=== PATIENT | female | born 1990 | race Two or more races ===

== ENCOUNTER 2016-09-02 20:38 | Day surgery (SDC) | payer OTHER ==
--- NOTE | 2016-09-02 20:52 | ER Document Report ---
ED Medical Screen (RME) - General Chief Complaint: Abdominal Pain Stated Complaint: ABDOMINAL PAIN Time seen by provider: 20:50 Mode of Arrival: Ambulatory Information source: Patient Notes: 26 yo female presents to ed for abdominal pain with spotting, Just had a miscarriage in April, states she is TRAVEL OUTSIDE OF THE [place] IN LAST 30 DAYS: No - HPI Onset: Other - 2days Onset/Duration: Gradual Quality of pain: Cramping Pain Level: 3 Associated Symptoms: Abdominal pain, Vaginal bleeding, Other - Exacerbated by: Denies Relieved by: Denies Similar symptoms previously: Yes Recently seen / treated by doctor: No - Related Data Smoking: Non-smoker Frequency of alcohol use: Rare Drug Abuse: None Allergies/Adverse Reactions: acetaminophen [From NyQuil] Allergy (Verified 09/02/16 20:49) dextromethorphan [From NyQuil] Allergy (Verified 09/02/16 20:49) doxylamine [From NyQuil] Allergy (Verified 09/02/16 20:49) guaifenesin [From Robitussin] Allergy (Verified 09/02/16 20:49) pseudoephedrine [From NyQuil] Allergy (Verified 09/02/16 20:49) Past Medical History Past Surgical History: Reports: Hx Cholecystectomy - Immunizations Hx Diphtheria, Pertussis, Tetanus Vaccination: Yes
--- NOTE | 2016-09-02 21:24 | ER Document Report ---
ED General - General Chief Complaint: Abdominal Pain Stated Complaint: ABDOMINAL PAIN Mode of Arrival: Ambulatory Information source: Patient Notes: 26-year-old female 6 para 1, 5 abortions presents with complaints of vaginal bleeding that started earlier today. Patient denies any fevers or chills nausea vomiting or diarrhea TRAVEL OUTSIDE OF THE [place] IN LAST 30 DAYS: No - HPI Onset: Just prior to arrival Onset/Duration: Sudden Quality of pain: Cramping Severity: Mild Pain Level: 1 Associated symptoms: Other Exacerbated by: Denies Relieved by: Denies Similar symptoms previously: Yes Recently seen / treated by doctor: Yes - Related Data Allergies/Adverse Reactions: acetaminophen [From NyQuil] Allergy (Verified 09/02/16 20:49) dextromethorphan [From NyQuil] Allergy (Verified 09/02/16 20:49) doxylamine [From NyQuil] Allergy (Verified 09/02/16 20:49) guaifenesin [From Robitussin] Allergy (Verified 09/02/16 20:49) pseudoephedrine [From NyQuil] Allergy (Verified 09/02/16 20:49) Past Medical History - General Information source: Patient - Social History Smoking Status: Never Smoker Cigarette use (# per day): No Chew tobacco use (# tins/day): No Smoking Education Provided: No Frequency of alcohol use: Rare Drug Abuse: None Family History: Reviewed & Not Pertinent Patient has suicidal ideation: No Patient has homicidal ideation: No Past Surgical History: Reports: Hx Cholecystectomy - Immunizations Hx Diphtheria, Pertussis, Tetanus Vaccination: Yes Review of Systems - Review of Systems Notes: REVIEW OF SYSTEMS: CONSTITUTIONAL : Denies fever, chills, or sweats. Denies recent illness. EENT: Denies eye, ear, throat, or mouth pain or symptoms. Denies nasal or sinus congestion or discharge. Denies throat, tongue, or mouth swelling or difficulty swallowing. CARDIOVASCULAR: Denies chest pain. Denies palpitations or racing or irregular heart beat. Denies ankle edema. RESPIRATORY: Denies cough, cold, or chest congestion. Denies shortness of breath, difficulty breathing, or wheezing. GASTROINTESTINAL: Denies abdominal pain or distention. Denies nausea, vomiting , or diarrhea. Denies blood in vomitus, stools, or per rectum. Denies black, tarry stools. Denies constipation. GENITOURINARY: Denies difficulty urinating, painful urination, burning, frequency, blood in urine, or discharge. FEMALE GENITOURINARY: Admits to vaginal bleeding cramping MUSCULOSKELETAL: Denies back or neck pain or stiffness. Denies joint pain or swelling. SKIN: Denies rash, lesions or sores. HEMATOLOGIC : Denies easy bruising or bleeding. LYMPHATIC: Denies swollen, enlarged glands. NEUROLOGICAL: Denies confusion or altered mental status. Denies passing out or loss of consciousness. Denies dizziness or lightheadedness. Denies headache. Denies weakness or paralysis or loss of use of either side. Denies problems with gait or speech. Denies sensory loss, numbness, or tingling. Denies seizures. PSYCHIATRIC: Denies anxiety or stress. Denies depression, suicidal ideation, or homicidal ideation. ALL OTHER SYSTEMS REVIEWED AND NEGATIVE. Dictation was performed using [employer] voice recognition software PHYSICAL EXAMINATION: GENERAL: Well-appearing, well-nourished and in no acute distress. HEAD: Atraumatic, normocephalic. EYES: Pupils equal round and reactive to light, extraocular movements intact, conjunctiva are normal. ENT: Nares patent, oropharynx clear without exudates. Moist mucous membranes. NECK: Normal range of motion, supple without lymphadenopathy LUNGS: Breath sounds clear to auscultation bilaterally and equal. No wheezes rales or rhonchi. HEART: Regular rate and rhythm without murmurs ABDOMEN: Soft, nontender, nondistended abdomen. No guarding, no rebound. No masses appreciated. Female : deferred by patient Musculoskeletal: Normal range of motion, no pitting or edema. No cyanosis. NEUROLOGICAL: Cranial nerves grossly intact. Normal speech, normal gait. Normal sensory, motor exams PSYCH: Normal mood, normal affect. SKIN: Warm, Dry, normal turgor, no rashes or lesions noted. Physical Exam - Vital signs Vitals: Temp Pulse Resp BP Pulse Ox 98.8 F 80 14 114/74 99 09/02/16 20:51 09/02/16 20:51 09/02/16 20:51 09/02/16 20:51 09/02/16 20:51 Course - Re-evaluation Re-evalutation: 09/02/16 22:42 Lab work noted hCG is 3300 09/02/16 23:13 Patient notes spotting that in fact started yesterday, denies any significant pain, vital signs are stable. Ultrasound is concerning for an ectopic , I did contact Dr. Rand who is on-call she will evaluate the images. I have spoken with the patient regards to this and await her call back 09/02/16 23:25 Dr Rand agrees that it appears to be an ectopic . She will evaluate the patient and expects to give methotrexate. Pt is made aware as well - Vital Signs Vital signs: Temp Pulse Resp BP Pulse Ox 98.8 F 80 14 114/74 99 09/02/16 20:51 09/02/16 20:51 09/02/16 20:51 09/02/16 20:51 09/02/16 20:51 - Laboratory Result Diagrams: 09/02/16 21:30 09/02/16 21:30 Laboratory results interpreted by me: 09/02/16 09/02/16 21:30 22:05 BUN 3 L Beta HCG, Quant 3463.60 H Urine Ketones TRACE H Urine Blood LARGE H - Diagnostic Test Radiology reviewed: Image reviewed, Reports reviewed - cocnerning for ectopic Discharge - Discharge Clinical Impression: Vaginal bleeding, abnormal Ectopic Qualifiers: Location of ectopic : tubal Intrauterine status: without intrauterine Qualified Code(s): O00.10 - Tubal without intrauterine Condition: Stable Disposition: HOME, SELF-CARE Instructions: Ectopic (Stable) ([facility]) Additional Instructions: You must return immediately if there are any other concerns Prescriptions: Oxycodone HCl/Acetaminophen [Percocet 5-325 mg Tablet] 1 - 2 tab PO Q4H PRN #15 tablet PRN Reason: Referrals: SUSAN RAND MD [ACTIVE STAFF] - 09/05/16
[2016-09-02 21:41] LABS: ABSOLUTE BASOPHILS # (AUTO) 0.1 10^3/uL (0.0-0.2); ABSOLUTE EOSINOPHILS # (AUTO) 0.1 10^3/uL (0.0-0.6); ABSOLUTE LYMPHOCYTES (AUTO) 1.9 10^3/uL (0.5-4.7); ABSOLUTE MONOCYTES (AUTO) 0.6 10^3/uL (0.1-1.4); BASOPHILS % (AUTO) 0.8 % (0-2); EOSINOPHILS % (AUTO) 1.1 % (0-6); HEMATOCRIT 38.7 % (36.0-47.0); HEMOGLOBIN 12.9 g/dL (12.0-15.5); LYMPHOCYTES % (AUTO) 19.7 % (13-45); MEAN CORPUSCULAR HEMOGLOBIN 28.8 pg (27.0-33.4); MEAN CORPUSCULAR HGB CONC 33.4 g/dL (32.0-36.0); MEAN CORPUSCULAR VOLUME 86 fl (80-97); MONOCYTES % (AUTO) 6.6 % (3-13); RED BLOOD COUNT 4.48 10^6/uL (3.72-5.28); RED CELL DISTRIBUTION WIDTH 13.2 % (11.5-14.0); SEGMENTED NEUTROPHILS % (AUTO) 71.8 % (42-78); WHITE BLOOD COUNT 9.7 10^3/uL (4.0-10.5)
[2016-09-02 21:54] LABS: ALANINE AMINOTRANSFERASE 25 U/L (9-52); ALBUMIN 4.7 g/dL (3.5-5.0); ALKALINE PHOSPHATASE 55 U/L (38-126); ANION GAP 12 (5-19); ASPARTATE AMINO TRANSFERASE 24 U/L (14-36); BILIRUBIN,TOTAL 0.5 mg/dL (0.2-1.3); BLOOD UREA NITROGEN 3 mg/dL (7-20); CARBON DIOXIDE 28 mmol/L (22-30); CHLORIDE 103 mmol/L (98-107); CREATININE RESULT 0.66 mg/dL (0.52-1.25); GLUCOSE 94 mg/dL (75-110); POTASSIUM 3.9 mmol/L (3.6-5.0); SODIUM 143.3 mmol/L (137-145); TOTAL PROTEIN 7.6 g/dL (6.3-8.2)
[2016-09-02 22:21] LABS: APPEARANCE,URINE SLIGHTLY-CLOUDY; BILIRUBIN,URINE NEGATIVE (NEGATIVE); GLUCOSE, URINE NEGATIVE (NEGATIVE); KETONES,URINE TRACE mg/dL (NEGATIVE); LEUKOCYTE ESTERASE,URINE NEGATIVE (NEGATIVE); NITRITE,URINE NEGATIVE (NEGATIVE); PROTEIN,URINE NEGATIVE (NEGATIVE); URINE SPECIFIC GRAVITY 1.013; UROBILINOGEN,URINE NEGATIVE mg/dL (<2.0)
[2016-09-02] MEDS ORDERED: NORMAL SALINE 1000 ML 1,000 ML IV ONE (23:34)
[2016-09-02] MEDS ORDERED: OXYCODONE-ACETAMINOPHEN 5-325 MG TABLET PO ONE (23:36)
[2016-09-02] MEDS ORDERED: PROMETHAZINE HCL 25 MG TABLET PO ONE (23:36)
[2016-09-03] MEDS: RINGERS SOLUTION,LACTATED 1,000 ML IV PRN ×2 (01:58→10:22)
[2016-09-03] MEDS: KETOROLAC TROMETHAMINE INJ/PF 30 MG/1 ML SDV IV PRN ×2 (03:49→13:00)
[2016-09-03] MEDS ORDERED: MIDAZOLAM 2 MG/2 ML INJ ONE (10:14)
[2016-09-03] MEDS ORDERED: HYDROMORPHONE HCL INJ/PF 2 MG/ML AMPULE ONE (10:14)
[2016-09-03] MEDS ORDERED: FENTANYL CITRATE INJ/PF 100 MCG/2 ML AMPUL ONE (10:14)
[2016-09-03] MEDS ORDERED: PROPOFOL INJ 200 MG/20 ML VIAL IV ONE (10:15)
[2016-09-03] MEDS ORDERED: ONDANSETRON HCL INJ/PF 4 MG/2 ML SDV ONE (10:27)
[2016-09-03] MEDS ORDERED: SUCCINYLCHOLINE CHLORIDE INJ 200 MG/10 ML VIAL ONE (10:27)
[2016-09-03] MEDS ORDERED: LIDOCAINE 2% INJ-PF (20 MG/ML) 10 ML AMPUL ONE (10:27)
[2016-09-03] MEDS ORDERED: DEXAMETHASONE SOD PHOSPHATE INJ 4 MG/1 ML VIAL ONE (10:27)
[2016-09-03] MEDS ORDERED: KETOROLAC TROMETHAMINE 60 MG/2 ML SDV ONE (10:27)
[2016-09-03] MEDS ORDERED: CEFAZOLIN INJ 1 GM VIAL ONE (11:04)
[2016-09-03] MEDS ORDERED: PROMETHAZINE HCL INJ 25 MG/1 ML VIAL IV PRN (11:15)
[2016-09-03] MEDS ORDERED: FENTANYL CITRATE INJ/PF 100 MCG/2 ML AMPUL IV PRN ×3 (11:15)
[2016-09-03] MEDS ORDERED: MEPERIDINE HCL/PF INJ 25 MG/1 ML DISP.SYRIN IV PRN (11:15)
[2016-09-03] MEDS ORDERED: MORPHINE SULFATE 10 MG/ML INJ IV PRN (11:15)
[2016-09-03] MEDS ORDERED: ONDANSETRON HCL INJ/PF 4 MG/2 ML SDV IV PRN (11:49)
[2016-09-03] MEDS ORDERED: ACETAMINOPHEN 100 ML IV ONE (12:12)
[2016-09-03 14:54] LABS: CHLAM PCR NOT DETECTED (NOT DETECT)
[2016-09-03 15:44] VITALS: BP 124/72
--- NOTE | 2016-10-11 09:47 | OPERATIVE REPORT E ---
Operative Report NAME: ANASTASIYA LEE : 1990 AGE: 26Y DATE OF SURGERY: 09/03/2016 ROOM: 208 PREOPERATIVE DIAGNOSIS: Right ectopic . POSTOPERATIVE DIAGNOSIS: Right ectopic . SURGEON: Matthew Thompson D.O. STARCH TREATING ASSISTANT: None. PROCEDURES: 1. Diagnostic laparoscopic examination. 2. Right salpingectomy. ANESTHESIA: General endotracheal anesthesia. COMPLICATIONS: None. PATHOLOGY: Right fallopian tube with ectopic . ESTIMATED BLOOD LOSS: 5 mL. FINDINGS: 1. Right ectopic in fallopian tube, which is unruptured. 2. Otherwise normal pelvic anatomy. DESCRIPTION OF PROCEDURE: The patient was taken to the operating room where she was placed under general endotracheal anesthesia. Once this was done, she was placed in the dorsal lithotomy position with Matt stirrups. She was then prepped and draped in normal sterile fashion. An open-sided speculum was then placed inside the patient's vagina and the cervix was easily visualized and grasped on the anterior lip with a single-toothed tenaculum. The uterus was then sounded to 6 cm. An [place] uterine manipulator was placed inside the uterus without difficulty. The open-sided speculum was then removed from the patient's vagina. The surgeon then changed gloves. A 5 mm incision was made at the base of the patient's umbilicus where a 5 mm direct Optiview scope was passed through the incision into the peritoneal cavity. Once inside the peritoneal cavity, CO2 gas was connected and opening pressures were noted less than 5. Patient's abdomen was then allowed to fill with CO2 gas. A 10 mm port was placed in the left lower quadrant and a 5 mm port was placed in the right lower quadrant under direct visualization without evidence of trauma or injury. A survey of the pelvic anatomy revealed a right ectopic in the right fallopian tube, which was unruptured, otherwise normal pelvic anatomy. Using the LigaSure device, a right salpingectomy was performed without difficulty. An EndoCatch bag was passed with a 10 mm port site and ectopic was placed in this bag and then removed from the port without difficulty. Following this, pressures were taken down to less than 5 and the LigaSure sites revealed excellent hemostasis. Following this, all ports, gas, and instruments were removed from the patient's abdomen. The 10 mm fascial defect was closed using 1-0 Vicryl and a figure of eight suture, and all skin incisions were closed using Dermabond. Then, the uterine manipulator was then removed from the patient's vagina. At this point in time, the procedure was terminated. All sponge, lap, and needle counts were correct x2. The patient tolerated the procedure well. The patient was taken to the recovery room in stable condition. DICTATING PHYSICIAN: Matthew Thompson DO [id number] PHY#: [id number] ID: [id number] JOB#: [id number] ACCT: [id number] cc:Matthew Thompson D.O. >
--- NOTE | 2016-11-01 12:30 | PDOC H&P ---
History of Present Illness Patient complains of: vaginal bleeding History of Present Illness: ANASTASIYA LEE is a 26 year old female who presents to ED complaining of vaginal spotting in known . Pt denies any significant pain. She has not had nausea or vomiting. She denies fever, chills, urinary or gi complaints Past Medical History LMP: unknown Past Surgical History Past Surgical History: Reports: Cholecystectomy Social History Smoking Status: Never Smoker Frequency of Alcohol Use: Rare Hx Recreational Drug Use: No Drugs: None Hx Prescription Drug Abuse: No - Advance Directive Resuscitation Status: Full Code Family History Family History: Reviewed & Not Pertinent Parental Family History Reviewed: Yes Children Family History Reviewed: Yes Sibling(s) Family History Reviewed.: Yes Medication/Allergy Home Medications: Oxycodone HCl/Acetaminophen [Percocet 5-325 mg Tablet] 1 tab PO Q4 PRN 09/03/16 Allergies/Adverse Reactions: acetaminophen [From NyQuil] Allergy (Verified 09/02/16 20:49) dextromethorphan [From NyQuil] Allergy (Verified 09/02/16 20:49) doxylamine [From NyQuil] Allergy (Verified 09/02/16 20:49) guaifenesin [From Robitussin] Allergy (Verified 09/02/16 20:49) pseudoephedrine [From NyQuil] Allergy (Verified 09/02/16 20:49) Physical Exam - Physical Exam Vital Signs: Temp Pulse Resp BP Pulse Ox 97.5 F 57 L 16 124/72 97 09/03/16 15:44 09/03/16 15:44 09/03/16 15:44 09/03/16 15:44 09/03/16 15:44 General appearance: PRESENT: no acute distress, cooperative Respiratory exam: PRESENT: clear to auscultation iris Cardiovascular exam: PRESENT: RRR GI/Abdominal exam: PRESENT: normal bowel sounds, soft, tenderness - some mild tenderness in rlq but no guarding or rebound. ABSENT: distended, guarding, mass , organolmegaly, rebound Extremities exam: PRESENT: full ROM. ABSENT: calf tenderness, clubbing, pedal edema Result Laboratory Results: 09/02/16 21:30 09/02/16 21:30 Impressions: Obstetrics Ultrasound 09/02/16 20:53 IMPRESSION: 2.7 cm complex cystic area in the right adnexa which appears separate from the right ovary, no color flow on Doppler interrogation, an ectopic cannot be excluded. OB consultation is recommended. Assessment & Plan - Diagnosis (1) Ectopic Qualifiers: Location of ectopic : tubal Intrauterine status: without intrauterine Qualified Code(s): O00.10 - Tubal without intrauterine Is this a current diagnosis for this admission?: YesPlan: Cyst most likely represents right ectopic as no iup identified. Discussed options including laparoscopic removal or methotrexate. Pt does not want surgery but is also afraid of the methotrexate. Stressed to patient the importance of treatment. As she is currently stable will wait until she has time to discuss with family and think over options unless worsening signs (2) Vaginal bleeding, abnormal Is this a current diagnosis for this admission?: Yes
== END 2016-09-03 16:55 | disposition home or self-care (01) ==
LOC: OROUT 20:38 → ER 20:38 → UNDOADMIN 09-03 00:51 → EH 09-03 00:51 → 2N 09-03 01:38 → UNDODISIN 09-03 16:55 → OROUT 09-03 16:55 → 2N 09-03 16:55
PROVIDERS: ATTEND Obstetrics & Gynecology
PROC: 10T24ZZ Resection of Products of Conception, Ectopic, Percutaneous Endoscopic Approach (ICD-10-PCS; principal; 2016-09-02)
PROC: 0UT54ZZ Resection of Right Fallopian Tube, Percutaneous Endoscopic Approach (ICD-10-PCS; 2016-09-02)
DX: O00.10 Tubal pregnancy without intrauterine pregnancy (principal); Z88.8 Allergy status to other drugs, medicaments and biological substances; N93.9 Abnormal uterine and vaginal bleeding, unspecified
CPT/HCPCS: 59151; 99284; 86900; 86901; 36415; 84702; 85025; 80053; 81001; 87491; 87591; 88305 ×2; 76817; J2250; J0690; J1100; J1885 ×2; J3010; J0330; J2405; J7120; J2704; J3490; J0131; 840; J1170

== ENCOUNTER 2017-10-13 14:32 | Emergency (ER) | payer SELFPAY ==
--- NOTE | 2017-10-13 16:01 | ER Document Report ---
ED Flu Like - General Chief Complaint: Flu Symptoms Stated Complaint: FLU LIKE SYMPTOMS Time Seen by Provider: 10/13/17 15:07 Mode of Arrival: Ambulatory Information source: Patient Notes: 27-year-old female presented ED for complaint of flulike symptoms since Monday. She states she has a runny nose cough congestion fever headache diarrhea vomiting. States her last menstrual period was 09/19/2017. States her last time vomiting was yesterday morning. She is alert and oriented speaks in full sentences pupils equal and react to light walks with the even steady gait TRAVEL OUTSIDE OF THE [place] IN LAST 30 DAYS: No - HPI Onset: Other - As Monday Timing/Duration: Persistent Quality of pain: Achy Severity: Moderate Pain Level: 3 CO exposure: No Associated symptoms: Body/muscle aches, Nonproductive cough, Diarrhea, Fever, Nausea, Vomiting, Rhinnorhea, Sinus pain/drainage Similar symptoms previously: Yes Recently seen / treated by doctor: No - Related Data Allergies/Adverse Reactions: acetaminophen [From NyQuil] Allergy (Verified 10/13/17 14:34) dextromethorphan [From NyQuil] Allergy (Verified 10/13/17 14:34) doxylamine [From NyQuil] Allergy (Verified 10/13/17 14:34) guaifenesin [From Robitussin] Allergy (Verified 10/13/17 14:34) pseudoephedrine [From NyQuil] Allergy (Verified 10/13/17 14:34) Past Medical History - General Information source: Patient - Social History Smoking Status: Never Smoker Cigarette use (# per day): No Chew tobacco use (# tins/day): No Smoking Education Provided: No Frequency of alcohol use: Social Drug Abuse: None Occupation: None Lives with: Alone - With child Family History: Arthritis, CAD, COPD, CVA, DM, Hyperlipidemia, Hypertension, Malignancy. denies: Thyroid Disfunction Patient has suicidal ideation: No Patient has homicidal ideation: No - Past Medical History Cardiac Medical History: Reports: None Pulmonary Medical History: Reports: Hx Bronchitis, Hx Pneumonia EENT Medical History: Reports: None Neurological Medical History: Reports: Hx Seizures - From meds Endocrine Medical History: Reports: None Renal/ Medical History: Reports: Hx Ectopic Malignancy Medical History: Reports: None GI Medical History: Reports: None Musculoskeltal Medical History: Reports Hx Musculoskeletal Deformity, Reports Hx Musculoskeletal Trauma Skin Medical History: Reports None Psychiatric Medical History: Reports: Hx Attention Deficit Hyperactivity Disorder, Hx Obsessive Compulsive Disorder Traumatic Medical History: Reports: None Infectious Medical History: Reports: None Past Surgical History: Reports: Hx Cholecystectomy, Hx Dilation and Curettage, Hx Gynecologic Surgery - Ectopic and one ovary and tube removed - Immunizations Immunizations up to date: Yes Hx Diphtheria, Pertussis, Tetanus Vaccination: Yes Review of Systems - Review of Systems Notes: Constitutional: [PRESENT: as per HPI. ABSENT: weight gain, weight loss] plan of fever chills headache Eyes: [ABSENT: visual disturbances] Ears: [ABSENT: hearing changes] Nasopharyngeal: Plan of runny nose with congestion and other times Cardiovascular: [ABSENT: chest pain, dyspnea on exertion, edema, orthropnea, palpitations] Respiratory: [ABSENT: , hemoptysis] and a cough and congestion Gastrointestinal: [ABSENT: abdominal pain, constipation, hematemesis, hematochezia] pain nausea vomiting and diarrhea as vomited yesterday last diarrhea yesterday Genitourinary: [ABSENT: dysuria, hematuria] Musculoskeletal: [ABSENT: joint swelling] Integumentary: [ABSENT: rash, wounds] Neurological: [ABSENT: abnormal gait, abnormal speech, confusion, dizziness, focal weakness, syncope] Psychiatric: [ABSENT: anxiety, depression, homicidal ideation, suicidal ideation ] Endocrine: [ABSENT: cold intolerance, heat intolerance, menstrual abnormalities , polydipsia, polyuria] Hematologic/Lymphatic: [ABSENT: easy bleeding, easy bruising, lymphadenopathy] Physical Exam - Vital signs Vitals: Temp Pulse Resp BP Pulse Ox 98.5 F 93 16 112/77 99 10/13/17 14:41 10/13/17 14:41 10/13/17 14:41 10/13/17 14:41 10/13/17 14:41 - Notes Notes: PHYSICAL EXAMINATION: GENERAL: 27-year-old female well-appearing, well-nourished and in no acute distress. HEAD: Atraumatic, normocephalic. EYES: Pupils equal round and reactive to light, extraocular movements intact, conjunctiva are normal. ENT: Nasal turbinates erythematous with swelling and nasal drainage, oropharynx with postnasal drip, tonsils without exudates. Moist mucous membranes. NECK: Normal range of motion, supple without lymphadenopathy LUNGS: Breath sounds clear to auscultation bilaterally and equal. No wheezes rales or rhonchi. Nonproductive cough. HEART: Regular rate and rhythm without murmurs ABDOMEN: Soft, nontender, nondistended abdomen. No guarding, no rebound. No masses appreciated. Female : deferred Musculoskeletal: Normal range of motion, no pitting or edema. No cyanosis. No point tenderness at this time NEUROLOGICAL: Cranial nerves grossly intact. Normal speech, normal gait. Normal sensory, motor exams PSYCH: Normal mood, normal affect. SKIN: Warm, Dry, normal turgor, no rashes or lesions noted. Course - Re-evaluation Re-evalutation: 10/14/17 01:28 Assessment consistent with upper respiratory infection. Patient was given instructions on Tylenol Motrin and [id number] cough and cold medicines. Patient was able to verbalize understanding of instructions. - Vital Signs Vital signs: Temp Pulse Resp BP Pulse Ox 98.4 F 86 16 124/75 98 10/13/17 16:15 10/13/17 16:15 10/13/17 14:41 10/13/17 16:15 10/13/17 16:15 Discharge - Discharge Clinical Impression: Viral syndrome URI (upper respiratory infection) Qualifiers: URI type: unspecified URI Qualified Code(s): J06.9 - Acute upper respiratory infection, unspecified Condition: Stable Disposition: HOME, SELF-CARE Instructions: Family Physicians / Practices Additional Instructions: Viral Syndrome The physician has diagnosed a viral infection. Viruses not only cause "colds," but can cause many different symptoms including generalized aching, fever, headache, cough, diarrhea, nausea, vomiting, and fatigue. The treatment, for the most part, is simply relief of symptoms. This means that antibiotics are usually not given. Rest, fluids, pain medications and, occasionally, medication for the specific symptoms that are most bothersome will be prescribed. Use good handwashing to avoid passing the virus to others. Shared toys should be cleaned with disinfectant. Clean the toilets, sinks, and counter surfaces in bathrooms. Launder clothing in hot water. Contact the physician if you develop any new or unusual symptoms such as severe headache, stiff neck, high fever, chest pain, productive cough, or shortness of breath. You should be rechecked if you don't see marked improvement within seven to 10 days. UPPER RESPIRATORY ILLNESS: You have a viral infection of the respiratory passages -- a "cold." This common infection causes nasal congestion, drainage, and often sore throat and cough. It is highly contagious. The disease usually lasts about 10 to 14 days. There is no "cure" for the viral infection -- it must run its course. If there is a complication, such as bacterial infection in the nose, sinuses, middle ear, or bronchial tubes, antibiotics may be required. The antibiotics won't affect the virus. Drink plenty of fluids. A humidifier may help. An expectorant medication or decongestant may make you more comfortable. Use acetaminophen or ibuprofen for fever or aches. See the doctor if fever persists over two days, if there is any significant worsening of your symptoms, or if you simply fail to improve as expected. COUGH-SUPPRESSANT & EXPECTORANT MEDICATION: You are to use a cough medication as needed for relief of symptoms. This medicine is a combination of an expectorant (to make the mucous thinner and more easily "coughed up") and a cough suppressant (to reduce the frequency of coughing). The cough-suppressant medicine is related to narcotics. You may experience mild nausea and sleepiness. Some patients who are very sensitive to narcotics may have stomach pain from this medicine. Taking the medicine with food reduces these side effects. Do not drive or work with machinery until you know how this medicine affects you. The expectorant should have no side effects. Iodine-containing expectorants (such as organidin) should not be taken by persons with active thyroid disease unless approved by your doctor. Call the doctor if you develop shortness of breath, hives, rash, itching, lightheadedness, or severe nausea and vomiting. USE OF ACETAMINOPHEN (Tylenol): Acetaminophen may be taken for pain relief or fever control. It's much safer than aspirin, offering a wider range of "safe" dosages. It is safe during . Some brand names are Tylenol, Panadol, Datril, Anacin 3, Tempra, and Liquiprin. Acetaminophen can be repeated every four hours. The following are maximum recommended dosages: >89 pounds or adults 650 mg to 900 mg Acetaminophen can be repeated every four hours. Maximum dose not to exceed 4000 mg a day. Recommend some Flonase 2 sprays each nostril twice a day and salt and soda solutions for your postnasal drip to remove the drainage from the back your throat. Nasal saline gel would also help with your dryness. FOLLOW-UP CARE: If you have been referred to a physician for follow-up care, call the physician s office for an appointment as you were instructed or within the next two days. If you experience worsening or a significant change in your symptoms, notify the physician immediately or return to the Emergency Department at any time for re-evaluation.
[2017-10-13 16:29] VITALS: BP 124/75
== END 2017-10-13 16:29 | disposition home or self-care (01) ==
LOC: ER 14:32
DX: B34.9 Viral infection, unspecified (principal); J06.9 Acute upper respiratory infection, unspecified; R09.89 Other specified symptoms and signs involving the circulatory and respiratory systems; R05 Cough; R09.81 Nasal congestion; R50.9 Fever, unspecified; R51 Headache; R19.7 Diarrhea, unspecified; R11.10 Vomiting, unspecified
CPT/HCPCS: 99283

== ENCOUNTER 2018-05-01 12:47 | Emergency (ER) | payer SELFPAY ==
[2018-05-01] MEDS ORDERED: ACETAMINOPHEN 325 MG TABLET PO ONE (14:33)
[2018-05-01] MEDS ORDERED: ONDANSETRON 4 MG TAB.RAPDIS PO ONE (14:33)
[2018-05-01] MEDS ORDERED: LIDOCAINE 2% VISCOUS SOLN 20 ML UDCUP PO ONE (14:34)
--- NOTE | 2018-05-01 14:38 | ER Document Report ---
ED General - General Chief Complaint: Abdominal Cramping Stated Complaint: VAGINAL BLEEDING,ABDOMINAL PAIN Time Seen by Provider: 05/01/18 14:26 TRAVEL OUTSIDE OF THE [place] IN LAST 30 DAYS: No - HPI Notes: Patient is a 28-year-old female approximately 12 weeks who presents to the ED complaining of intermittent vaginal cramping, bleeding over the last 2 days with one episode of nausea and vomiting. Pt has had prev miscarriages and one ectopic. Patient states that she also has intermittent headaches from a cracked tooth in her right upper mouth. Patient states that she has been taking [id number] Excedrin, Motrin, and Tylenol for her symptoms. Patient states that she was not told otherwise that she could not take ibuprofen/Excedrin for her symptoms. Patient states that she is still able to eat and drink, but does have a decreased p.o. intake over the last couple days. She is urinating normally and having normal bowel movements. Patient has not had any other vaginal discharge or odor and has no concerns with STDs or STI's. Denies any other significant past medical history. Denies any fever, head injury, neck pain, changes in vision/speech/mentation/hearing, URI, sore throat, chest pain, palpitations, syncope, cough, shortness of breath , wheeze, dyspnea, diarrhea, urinary retention, dysuria, hematuria, back pain, loss of control of bowel or bladder, numbness/tingling, saddle anesthesia, muscle paralysis/weakness, or rash. - Related Data Allergies/Adverse Reactions: dextromethorphan [From NyQuil] Allergy (Verified 05/01/18 14:40) doxylamine [From NyQuil] Allergy (Verified 05/01/18 14:40) guaifenesin [From Robitussin] Allergy (Verified 05/01/18 14:40) pseudoephedrine [From NyQuil] Allergy (Verified 05/01/18 14:40) Past Medical History - Social History Smoking Status: Unknown if Ever Smoked Family History: Arthritis, CAD, COPD, CVA, DM, Hyperlipidemia, Hypertension, Malignancy. denies: Thyroid Disfunction Pulmonary Medical History: Reports: Hx Bronchitis, Hx Pneumonia Neurological Medical History: Reports: Hx Seizures - From meds Renal/ Medical History: Reports: Hx Ectopic . Denies: Hx Peritoneal Dialysis Musculoskeletal Medical History: Reports Hx Musculoskeletal Deformity, Reports Hx Musculoskeletal Trauma Psychiatric Medical History: Reports: Hx Attention Deficit Hyperactivity Disorder, Hx Obsessive Compulsive Disorder Past Surgical History: Reports: Hx Cholecystectomy, Hx Dilation and Curettage, Hx Gynecologic Surgery - Ectopic and one ovary and tube removed - Immunizations Immunizations up to date: Yes Hx Diphtheria, Pertussis, Tetanus Vaccination: Yes Review of Systems - Review of Systems -: Yes All other systems reviewed and negative Physical Exam - Vital signs Vitals: Temp Pulse Resp BP Pulse Ox 98.7 F 101 H 16 125/75 98 05/01/18 13:08 05/01/18 13:08 05/01/18 13:08 05/01/18 13:08 05/01/18 13:08 - Notes Notes: PHYSICAL EXAMINATION: GENERAL: Well-appearing, well-nourished and in no acute distress. HEAD: Atraumatic, normocephalic. EYES: Pupils equal round and reactive to light, extraocular movements intact, sclera anicteric, conjunctiva are normal. ENT: Nares patent and without discharge. oropharynx clear without exudates. No tonsilar hypertrophy or erythema. Moist mucous membranes. NECK: Normal range of motion, supple without lymphadenopathy LUNGS: Breath sounds clear to auscultation bilaterally and equal. No wheezes rales or rhonchi. HEART: Regular rate and rhythm without murmurs, rubs, gallops. ABDOMEN: Soft, nondistended abdomen. No guarding, no rebound. No masses appreciated. Normal bowel sounds present. No CVA tenderness bilaterally. + mild tenderness to the lower pelvic area b/l. No tenderness to McBurney point. Bermudez neg. Musculoskeletal: FROM to passive/active. Strength 5+/5. Extremities: No cyanosis, clubbing, or edema b/l. Peripheral pulses 2+. Capillary refill less than 3 seconds. NEUROLOGICAL: Normal speech, normal gait. PSYCH: Normal mood, normal affect. SKIN: Warm, Dry, normal turgor, no rashes or lesions noted. Course - Re-evaluation Re-evalutation: 05/01/18 14:39 Blood type A+ by history/records. 05/01/18 16:51 Patient is an afebrile, well-hydrated, 28-year-old female who presents to the ED with vaginal bleeding and cramping in early , impending miscarriage. Vitals are acceptable without any significant tachycardia, tachypnea, or hypoxia. PE is otherwise unremarkable. CBC, CMP, urinalysis were unremarkable for any acute pathology. HCG less than 1500 despite being approximately 8-1/2 weeks by ultrasound and 13 weeks by menstrual cycle date. Patient is tolerating p.o. without difficulties and is nontoxic-appearing. See ultrasound results which shows an impending miscarriage and no heart motion. No other labs or imaging warranted at this time based on H&P. Low suspicion/risk for acute appendicitis, bowel obstruction, acute cholecystitis, acute cholangitis, perforated diverticulitis, incarcerated hernia, pancreatitis , perforated ulcer, peritonitis, sepsis, pelvic inflammatory disease, ectopic , tubo-ovarian abscess, ovarian torsion, or other systemic emergent condition at this time. Patient is aware that her condition can change from initial presentation and she needs to monitor symptoms closely and seek medical attention if any acute changes. Conservative measures otherwise for symptoms. Call [facility] to schedule an appointment for further evaluation and management. Recheck with your PCM in 3-5 days. Return to the ED with any worsening/concerning symptoms otherwise as reviewed in discharge. Patient is in agreement. - Vital Signs Vital signs: Temp Pulse Resp BP Pulse Ox 98.7 F 101 H 16 125/75 98 05/01/18 13:08 05/01/18 13:08 05/01/18 13:08 05/01/18 13:08 05/01/18 13:08 - Laboratory Result Diagrams: 05/01/18 15:55 05/01/18 15:55 Laboratory results interpreted by me: 05/01/18 05/01/18 05/01/18 15:55 15:55 15:55 RDW 14.2 H BUN 5 L Beta HCG, Quant 1014.20 H Urine Blood SMALL H Urine Ascorbic Acid 40 H Discharge - Discharge Clinical Impression: Vaginal bleeding affecting early Condition: Stable Disposition: HOME, SELF-CARE Additional Instructions: Maintain fluid intake Proper hygenic technique Keep the skin clean Safe sexual practices with condoms everytime Tylenol as needed Return immediately if symptoms worsen F/u with your PCM/OBGYN in 2-3 days for a recheck, Call OBGYN tomorrow Return to the ED with any development of HANNAH/fever, trouble with vision, eye redness, worsening pain, urethral discharge, urinary retention, blood in the urine, flank pain, abdominal pain, n/v, Chest Pain, shortness of breath, joint pains, trouble breathing, or any other worsening/concerning symptoms as needed otherwise. Referrals: [facility] [Provider Group] - 05/03/18
--- NOTE | 2018-05-01 16:00 | RADIOLOGY REPORT (SQ) ---
EXAM DESCRIPTION: U/S OB TRANSABDOMINAL W/DOPPLER COMPLETED DATE/TIME: 05/01/2018 3:49 pm REASON FOR STUDY: cramping, bleeding, approx 12 wks COMPARISON: None. TECHNIQUE: Transabdominal static and realtime grayscale images acquired of the pelvis. Additional se lected spectral and color Doppler images recorded. All images stored on PACs. bHCG: Not available. CLINICAL DATES: LMP 01/29/2018. 13 weeks 1 day LIMITATIONS: None. FINDINGS: FETUS: Living intrauterine . ULTRASOUND EGA: 8 weeks 6 days ULTRASOUND EMETERIO: 12/05/2018 CRL: 2.25 cm FHR: No heart motion was seen. SUBCHORIONIC BLEED: No SIZE OF BLEED: Not applicable. UTERUS: No masses. No anomalies. CERVICAL LENGTH: 2.4 cm. Closed. RIGHT ADNEXA: Ovary not seen. No adnexal free fluid. No adnexal masses. LEFT ADNEXA: Ovary not seen. No adnexal free fluid. No adnexal masses. FREE FLUID: None. OTHER: No other significant finding. IMPRESSION: Impending miscarriage. No heart motion is seen. EGA 8 weeks 1 day Trimester of : First - 0 to 13 weeks. TECHNICAL DOCUMENTATION: JOB ID: [id number] [employer]- All Rights Reserved rev-01/12 Reading location - IP/workstation name: [email or web address]
[2018-05-01 16:11] LABS: ABSOLUTE EOSINOPHILS # (AUTO) 0.5 10^3/uL (0.0-0.6); ABSOLUTE LYMPHOCYTES (AUTO) 1.8 10^3/uL (0.5-4.7); ABSOLUTE MONOCYTES (AUTO) 0.5 10^3/uL (0.1-1.4); ABSOLUTE NEUT (AUTO) 5.6 10^3/uL (1.7-8.2); BASOPHILS % (AUTO) 0.3 % (0-2); HEMOGLOBIN 13.2 g/dL (12.0-15.5); LYMPHOCYTES % (AUTO) 20.9 % (13-45); MEAN CORPUSCULAR HEMOGLOBIN 29.5 pg (27.0-33.4); MEAN CORPUSCULAR HGB CONC 33.8 g/dL (32.0-36.0); MEAN CORPUSCULAR VOLUME 87 fl (80-97); MONOCYTES % (AUTO) 6.1 % (3-13); PLATELET COUNT 292 10^3/uL (150-450); RED BLOOD COUNT 4.48 10^6/uL (3.72-5.28); RED CELL DISTRIBUTION WIDTH 14.2 % (11.5-14.0); SEGMENTED NEUTROPHILS % (AUTO) 66.7 % (42-78); TOTAL CELLS COUNTED % (AUTO) 100 %; WHITE BLOOD COUNT 8.4 10^3/uL (4.0-10.5)
[2018-05-01 16:14] LABS: APPEARANCE,URINE SLIGHTLY-CLOUDY; BILIRUBIN,URINE NEGATIVE (NEGATIVE); COLOR,URINE YELLOW; GLUCOSE, URINE NEGATIVE (NEGATIVE); KETONES,URINE NEGATIVE (NEGATIVE); LEUKOCYTE ESTERASE,URINE NEGATIVE (NEGATIVE); NITRITE,URINE NEGATIVE (NEGATIVE); PROTEIN,URINE NEGATIVE (NEGATIVE); URINE SPECIFIC GRAVITY 1.017; UROBILINOGEN,URINE NEGATIVE mg/dL (<2.0)
[2018-05-01 16:29] LABS: ALANINE AMINOTRANSFERASE 17 U/L (9-52); ALBUMIN 4.3 g/dL (3.5-5.0); ALKALINE PHOSPHATASE 57 U/L (38-126); ANION GAP 10 (5-19); ASPARTATE AMINO TRANSFERASE 21 U/L (14-36); BILIRUBIN,DIRECT 0.2 mg/dL (0.0-0.4); BILIRUBIN,TOTAL 0.2 mg/dL (0.2-1.3); BLOOD UREA NITROGEN 5 mg/dL (7-20); CALCIUM 9.5 mg/dL (8.4-10.2); CARBON DIOXIDE 27 mmol/L (22-30); CHLORIDE 104 mmol/L (98-107); GLUCOSE 92 mg/dL (75-110); POTASSIUM 4.3 mmol/L (3.6-5.0); SODIUM 140.6 mmol/L (137-145); TOTAL PROTEIN 7.7 g/dL (6.3-8.2)
[2018-05-01 17:11] VITALS: BP 117/74
== END 2018-05-01 17:15 | disposition home or self-care (01) ==
LOC: ER 12:47
DX: O20.9 Hemorrhage in early pregnancy, unspecified (principal); O26.891 Other specified pregnancy related conditions, first trimester; R10.2 Pelvic and perineal pain; R51 Headache; O21.9 Vomiting of pregnancy, unspecified; O99.611 Diseases of the digestive system complicating pregnancy, first trimester; K03.81 Cracked tooth; Z3A.13 13 weeks gestation of pregnancy; Z87.59 Personal history of other complications of pregnancy, childbirth and the puerperium; Z88.8 Allergy status to other drugs, medicaments and biological substances
CPT/HCPCS: 99284; 36415; 87086; 84702; 85025; 80053; 81001; 76817; 93976; S0119

== ENCOUNTER 2018-06-10 21:38 | Emergency (ER) | payer MEDICAID ==
[2018-06-10] MEDS ORDERED: CEPHALEXIN 500 MG CAPSULE PO ONE (23:37)
--- NOTE | 2018-06-10 23:38 | ER Document Report ---
ED Eye Complaint - General Mode of Arrival: Ambulatory TRAVEL OUTSIDE OF THE [place] IN LAST 30 DAYS: No - General Chief Complaint: Eye Problem Stated Complaint: LEFT EYE PAIN Time Seen by Provider: 06/10/18 23:13 Notes: 28 year old female that presents to the emergency department today with complaints of "a worm or larva" in her left upper eyelid. Patient states that she has noticed a bump of her left eyelid for the last few days and today it developed into a white head. Patient states she squeezed on this area and she believes the worm "went back in". Patient states that the reason she thinks she has a parasite in her eyelid is because she can "see it and feel it moving" . Patient is currently on doxycycline and Flagyl for a miscarriage with retained products x2-3 weeks ago. Patient denies any eyeball pain/foreign body, travel outside of the country, swimming in fresh water lakes/dasilva, or living near livestock. Patient denies any pain with movement of the eyeball. (KIMBERLEE SANCHEZ) - Related Data Allergies/Adverse Reactions: dextromethorphan [From NyQuil] Allergy (Verified 05/22/18 15:55) doxylamine [From NyQuil] Allergy (Verified 05/22/18 15:55) guaifenesin [From Robitussin] Allergy (Verified 05/22/18 15:55) pseudoephedrine [From NyQuil] Allergy (Verified 05/22/18 15:55) Past Medical History - General Information source: Patient - Social History Smoking Status: Never Smoker Cigarette use (# per day): No Frequency of alcohol use: Social Drug Abuse: None Lives with: Family Family History: Reviewed & Not Pertinent Patient has suicidal ideation: No Patient has homicidal ideation: No Renal/ Medical History: Denies: Hx Peritoneal Dialysis Past Surgical History: Reports: Hx Cholecystectomy Review of Systems - Review of Systems Constitutional: No symptoms reported EENT: See HPI, Other - Left upper eyelid pain, possible "worm or larva" in left upper eyelid Cardiovascular: No symptoms reported Respiratory: No symptoms reported Gastrointestinal: No symptoms reported Genitourinary: No symptoms reported Female Genitourinary: No symptoms reported Musculoskeletal: No symptoms reported Skin: See HPI Hematologic/Lymphatic: No symptoms reported Neurological/Psychological: No symptoms reported -: Yes All other systems reviewed and negative Physical Exam - Vital signs Vitals: Temp Pulse Resp BP Pulse Ox 98.4 F 114 H 18 114/84 100 06/10/18 22:04 06/10/18 22:04 06/10/18 22:04 06/10/18 22:04 06/10/18 22:04 - Notes Notes: PHYSICAL EXAM GENERAL: Alert, interacts well. No acute distress. HEAD: Normocephalic, atraumatic. EYES: Pupils equal, round, and reactive to light. Extraocular movements intact, no pain with extraocular movements. Left conjunctival injection. See skin exam. ENT: Oral mucosa moist, tongue midline. NECK: Full range of motion. Supple. Trachea midline. LUNGS: No respiratory distress. EXTREMITIES: Moves all 4 extremities spontaneously. NEUROLOGICAL: Alert and oriented x3. Normal speech. PSYCH: Normal affect, normal mood. SKIN: Warm, dry, normal turgor. Erythema of left upper eyelid, erythema of lower lid and upper left cheek. No significant swelling. 2mm wound over upper left eyelid consistent with popped white head. No fluid collection or evidence of parasite on bedside ultrasound. (KIMBERLEE SANCHEZ) Course - Re-evaluation Re-evalutation: 06/10/18 23:39 Bedside ultrasound does not show any evidence of remaining abscess, there is mild cellulitis around the eyelid. Patient just opened the abscess herself this evening. Patient is already taken doxycycline and Flagyl however I will add Keflex for additional strep coverage. Patient will be discharged to home. No evidence of orbital cellulitis, no pain with eye movement. Patient is worried that there may be a bug or larvae living in her eyelid, this was not seen on exam, is not consistent with exam or ultrasound and is not consistent with history. (CAMILLA HATHAWAY) - Vital Signs Vital signs: Temp Pulse Resp BP Pulse Ox 98.5 F 88 18 110/77 100 06/11/18 00:43 06/11/18 00:43 06/11/18 00:43 06/11/18 00:43 06/11/18 00:43 Discharge - Discharge Clinical Impression: Cellulitis of left upper eyelid Condition: Stable Disposition: HOME, SELF-CARE Additional Instructions: Please hold warm wet compresses to your left eye several times a day. Do not pick at it this area. Take the Keflex twice a day as directed until it is gone. Please be rechecked by an party host in the next 2-3 days. Prescriptions: Cephalexin Monohydrate [Keflex 500 mg Capsule] 1,000 mg PO BID #28 capsule Referrals: RUDY CORRALES DO [ACTIVE STAFF] - Follow up as needed Scribe Attestation: 06/11/18 06:02 I personally performed the services described in the documentation, reviewed and edited the documentation which was dictated to the scribe in my presence, and it accurately records my words and actions. (CAMILLA HATHAWAY) Scribe Documentation - Scribe Written by Taryne:: Dorothea Mendoza, 06/11/2018 0055 acting as scribe for :: Mihir
[2018-06-11 00:44] VITALS: BP 110/77
== END 2018-06-11 00:18 | disposition home or self-care (01) ==
LOC: MERGE 21:38 → ER 21:38
DX: H00.034 Abscess of left upper eyelid (principal); H57.12 Ocular pain, left eye
CPT/HCPCS: 99283

== ENCOUNTER 2019-03-04 00:35 | Outpatient (CLI) | payer MEDICAID ==
[2019-03-04 01:21] LABS: ABSOLUTE EOSINOPHILS # (AUTO) 0.4 10^3/uL (0.0-0.6); ABSOLUTE LYMPHOCYTES (AUTO) 2.2 10^3/uL (0.5-4.7); ABSOLUTE MONOCYTES (AUTO) 0.8 10^3/uL (0.1-1.4); ABSOLUTE NEUT (AUTO) 12.3 10^3/uL (1.7-8.2); BASOPHILS % (AUTO) 0.1 % (0-2); EOSINOPHILS % (AUTO) 2.6 % (0-6); HEMATOCRIT 31.1 % (36.0-47.0); HEMOGLOBIN 10.7 g/dL (12.0-15.5); LYMPHOCYTES % (AUTO) 13.9 % (13-45); MEAN CORPUSCULAR HGB CONC 34.3 g/dL (32.0-36.0); MEAN CORPUSCULAR VOLUME 85 fl (80-97); MONOCYTES % (AUTO) 4.9 % (3-13); PLATELET COUNT 272 10^3/uL (150-450); RED BLOOD COUNT 3.68 10^6/uL (3.72-5.28); RED CELL DISTRIBUTION WIDTH 13.2 % (11.5-14.0); SEGMENTED NEUTROPHILS % (AUTO) 78.5 % (42-78); TOTAL CELLS COUNTED % (AUTO) 100 %; WHITE BLOOD COUNT 15.7 10^3/uL (4.0-10.5)
[2019-03-04 01:29] LABS: APPEARANCE,URINE CLEAR; BILIRUBIN,URINE NEGATIVE (NEGATIVE); COLOR,URINE YELLOW; GLUCOSE, URINE NEGATIVE (NEGATIVE); KETONES,URINE NEGATIVE (NEGATIVE); LEUKOCYTE ESTERASE,URINE NEGATIVE (NEGATIVE); NITRITE,URINE NEGATIVE (NEGATIVE); PROTEIN,URINE NEGATIVE (NEGATIVE); URINE SPECIFIC GRAVITY 1.018; UROBILINOGEN,URINE NEGATIVE mg/dL (<2.0)
[2019-03-04 01:46] LABS: URINE AMPHETAMINES SCREEN NEGATIVE; URINE BARBITURATES SCREEN NEGATIVE; URINE BENZODIAZEPINES SCREEN NEGATIVE; URINE COCAINE SCREEN NEGATIVE; URINE MARIJUANA (THC) SCREEN NEGATIVE; URINE METHADONE SCREEN NEGATIVE; URINE PHENCYCLIDINE SCREEN NEGATIVE
[2019-03-04 02:14] LABS: RUBELLA INTERPRETATION POSITIVE
--- NOTE | 2019-03-04 04:38 | RADIOLOGY REPORT (SQ) ---
EXAM: / Ultrasound. INDICATION: Gravid uterus. TECHNIQUE: Grayscale and doppler evaluation of the fetus. Transabdominal technique was utilized. Exam was performed by an lead nuclear medicine technologist, and static images were submitted for review. Note: KRISTEN=amniotic fluid index. BPD=biparietal diameter. HC=head circumference. AC=abdominal circumference. FL=femur length. CI=cephalic index. EFW=estimated weight. LMP=last menstrual period. MA=mean gestational age. EMETERIO=estimated date of delivery. COMPARISON: None. FINDINGS: Maternal: Ovaries: Obscured by gravid maternal uterus. Cervix: Closed and approximately 3.1 cm in length. : Number: Khan. Status: Live . Presentation: Cephalic. Heart rate: 158 bpm. KRISTEN: 14.2 cm. Placenta: Position: Anterior. Complications: No previa or abruptio. Morphology: Cerebral ventricles: Identified. Cerebellum: Identified. Four-chamber heart: Identified. Spine: Identified. Stomach: Identified. Bladder: Identified. Kidneys: Identified. Umbilical cord: # of vessels: Three. insertion site: Identified. Placental insertion site: Identified. Biometry: BPD: 5.41 cm = 22 weeks 3 days. HC: 20.40 cm = 22 weeks 4 days. AC: 15.67 cm = 20 weeks 6 days. FL: 3.72 cm = 21 weeks 6 days. Ratios (%): FL/AC: 23.7 (20-24). FL/BPD: 68.8 (71-87). HC/AC: 1.30 (1.04-1.22). CI: 82.8 (70-86). EFW = 425 grams. 2%ile by Hadlock. (Please note that an incorrect LMP could make the percentile value inaccurate.) Clinical: LMP: 09/09/2018. MA: 25 weeks one day. EMETERIO: 06/16/2019. Ultrasound: MA: 22 weeks zero days. EMETERIO: 07/08/2019. IMPRESSION: 1. Single live intrauterine , as above. copyright 2010 [employer]- All Rights Reserved
[2019-03-05 06:37] LABS: HEPATITIS C VIRUS AB <0.1 s/co ratio (0.0-0.9)
[2019-03-05 09:28] LABS: HEPATITS B SURFACE ANTIGEN Negative (Negative)
== END 2019-03-04 03:56 | disposition home or self-care (01) ==
LOC: LC 00:35
PROVIDERS: ATTEND Obstetrics & Gynecology
PROC: 4A1HXCZ Monitoring of Products of Conception, Cardiac Rate, External Approach (ICD-10-PCS; principal; 2019-03-04)
DX: O26.892 Other specified pregnancy related conditions, second trimester (principal); R10.2 Pelvic and perineal pain; Z3A.25 25 weeks gestation of pregnancy
CPT/HCPCS: 36415; 76805; 80307; 81001; 85025; 86592; 86701; 86762; 86803; 86804; 86850; 86900; 86901; 87340

== ENCOUNTER 2019-12-17 21:52 | Emergency (ER) | payer MEDICAID ==
--- NOTE | 2019-12-17 22:17 | ER Document Report ---
ED General - General Stated Complaint: FLU LIKE SYMPTOMS Notes: 29-year-old female presents with a rash. She says that she put Yee hair removal cream on her arms chest and legs and says that after that she began having an itchy rash. Her family also has a rash some of which is between her h ands and on her buttocks. No fevers or URI symptoms. TRAVEL OUTSIDE OF THE [place] IN LAST 30 DAYS: No - Related Data Allergies/Adverse Reactions: dextromethorphan [From NyQuil] Allergy (Verified 03/04/19 00:54) doxylamine [From NyQuil] Allergy (Verified 03/04/19 00:54) guaifenesin [From Robitussin] Allergy (Verified 03/04/19 00:54) pseudoephedrine [From NyQuil] Allergy (Verified 03/04/19 00:54) Past Medical History - Social History Smoking Status: Never Smoker Family History: Arthritis, Malignancy, CAD, COPD, CVA, DM, Hyperlipidemia, Hypertension, Reviewed & Not Pertinent Pulmonary Medical History: Reports: Hx Bronchitis, Hx Pneumonia Neurological Medical History: Reports: Hx Seizures - From meds Renal/ Medical History: Reports: Hx Ectopic . Denies: Hx Peritoneal Dialysis Musculoskeletal Medical History: Reports Hx Musculoskeletal Deformity, Reports Hx Musculoskeletal Trauma Psychiatric Medical History: Reports: Hx Attention Deficit Hyperactivity Disorder, Hx Obsessive Compulsive Disorder Past Surgical History: Reports: Hx Cholecystectomy, Hx Dilation and Curettage, Hx Gynecologic Surgery - Ectopic and one ovary and tube removed - Immunizations Immunizations up to date: Yes Hx Diphtheria, Pertussis, Tetanus Vaccination: Yes Review of Systems - Review of Systems Notes: REVIEW OF SYSTEMS GEN: Denies fever, chills, weight loss ENT: Denies sore throat, nasal discharge, ear pain EYES: Denies blurry vision, eye pain, discharge CV: Denies chest pain, palpitations, edema RESP: Denies cough, shortness of breath, wheezing GI: Denies abdominal pain, nausea, vomiting, diarrhea MSK: Denies joint pain/swelling, edema, SKIN: Rash LYMPH: Denies swollen glands/lymph nodes NEURO: Denies headache, focal weakness or numbness, dizziness PSYCH: Denies depression, suicidal or homicidal ideation PHYSICAL EXAMINATION General: No acute distress, well-nourished Head: Atraumatic, normocephalic ENT: Mouth normal, oropharynx moist, no exudates or tonsillar enlargement Eyes: Conjunctiva normal, pupils equal, lids normal Neck: No JVD, supple, no guarding CVS: Normal rate, regular rhythm, no murmurs Resp: No resp distress, equal and normal breath sounds bilaterally GI: Nondistended, soft, no tenderness to palpation, no rebound or guarding Ext: No deformities, no edema, normal range of motion in upper and lower ext Back: No CVA or midline TTP Skin: Fine papular vesicular rash on the hands arms chest and back Lymphatic: No lymphadeopathy noted Neuro: Awake, alert. Face symmetric. GCS 15. Physical Exam - Vital signs Vitals: Temp Pulse Resp BP Pulse Ox 98.1 F 100 18 117/74 100 12/17/19 22:40 12/17/19 22:40 12/17/19 22:40 12/17/19 22:40 12/17/19 22:40 Course - Re-evaluation Re-evalutation: 12/17/19 23:37 Contact dermatitis versus scabies versus both We will treat for scabies then contact dermatitis Treatment for family as well No evidence of systemic disease despite respiratory symptoms I have discussed with the patient there likely diagnosis, aftercare plan, follow-up plans and my usual and customary return precautions. They verbalized understanding of this. - Vital Signs Vital signs: Temp Pulse Resp BP Pulse Ox 98.1 F 100 18 117/74 100 12/17/19 22:40 12/17/19 22:40 12/17/19 22:40 12/17/19 22:40 12/17/19 22:40 Discharge - Discharge Clinical Impression: Rash Condition: Good Disposition: HOME, SELF-CARE Instructions: Contact Dermatitis ([facility]), Scabies ([facility]) Prescriptions: Permethrin [Acticin 5% Cream 60 gm] 1 applic TP ONCE PRN #7 tube PRN Reason:
[2019-12-17 23:06] VITALS: BP 117/74
== END 2019-12-17 22:40 | disposition home or self-care (01) ==
LOC: ER 21:52
DX: R21 Rash and other nonspecific skin eruption (principal); Z88.8 Allergy status to other drugs, medicaments and biological substances
CPT/HCPCS: 99282

== ENCOUNTER 2020-04-25 08:57 | Emergency (ER) | payer MEDICAID ==
--- NOTE | 2020-04-25 10:15 | ER Document Report ---
ED General - General Chief Complaint: Abscess Stated Complaint: SPIDER BITE Time Seen by Provider: 04/25/20 09:27 Notes: Patient is a 30-year-old female who presents emergency department with a chief complaint of a spider bite to her right buttock. Patient states that she ended up getting this a few weeks ago. She used Epsom salts to help clear the area. States that it did get a little bit better. Had some purulent drainage from it. Patient also has complaints of nausea and vomiting. History of an ectopic and cholecystectomy. States she did have some chills. TRAVEL OUTSIDE OF THE [place] IN LAST 30 DAYS: No - Related Data Allergies/Adverse Reactions: dextromethorphan [From NyQuil] Allergy (Verified 04/25/20 09:48) doxylamine [From NyQuil] Allergy (Verified 04/25/20 09:48) guaifenesin [From Robitussin] Allergy (Verified 04/25/20 09:48) pseudoephedrine [From NyQuil] Allergy (Verified 04/25/20 09:48) Past Medical History - Social History Smoking Status: Never Smoker Frequency of alcohol use: None Drug Abuse: None Family History: Arthritis, Malignancy, CAD, COPD, CVA, DM, Hyperlipidemia, Hypertension, Reviewed & Not Pertinent Patient has homicidal ideation: No Pulmonary Medical History: Reports: Hx Bronchitis, Hx Pneumonia Neurological Medical History: Reports: Hx Seizures - From meds Renal/ Medical History: Reports: Hx Ectopic . Denies: Hx Peritoneal Dialysis Musculoskeletal Medical History: Reports Hx Musculoskeletal Deformity, Reports Hx Musculoskeletal Trauma Psychiatric Medical History: Reports: Hx Attention Deficit Hyperactivity Disorder, Hx Obsessive Compulsive Disorder Past Surgical History: Reports: Hx Cholecystectomy, Hx Dilation and Curettage, Hx Gynecologic Surgery - Ectopic and one ovary and tube removed - Immunizations Immunizations up to date: Yes Hx Diphtheria, Pertussis, Tetanus Vaccination: Yes Review of Systems - Review of Systems Notes: REVIEW OF SYSTEMS: CONSTITUTIONAL : Denies recent illness. Denies recent unintentional weight loss. See HPI. EENT: Denies eye, ear, throat, or mouth pain, discharge, or symptoms. Denies nasal or sinus congestion. CARDIOVASCULAR: Denies chest pain. RESPIRATORY: Denies shortness of breath, cough, congestion, difficulty breathing, or wheezing. GASTROINTESTINAL: See HPI. GENITOURINARY: Denies difficulty urinating, burning, blood in urine, urgency or frequency. MUSCULOSKELETAL: Denies neck and back pain. Denies joint pain or swelling. SKIN: See HPI. HEMATOLOGIC : Denies easy bruising or bleeding. LYMPHATIC: Denies swollen, painful, enlarged glands. NEUROLOGICAL: Denies no numbness or tingling denies weakness. Denies headache. Denies altered mental status. Denies alteration in speech. PSYCHIATRIC: Denies stress, anxiety, alteration in sleep patterns, or depression. All other systems reviewed and negative. Physical Exam - Vital signs Vitals: Temp 98.7 F 04/25/20 09:30 - Notes Notes: PHYSICAL EXAMINATION: GENERAL: Appears well, healthy, well-nourished, no acute distress. HEAD: Normocephalic, atraumatic. EYES: PERRL, conjunctiva normal, all extraocular movements intact, sclera nonicteric ENT: Moist mucous membranes. NECK: Supple, no noticeable swelling, redness, rash. Normal range of motion. LUNGS: Equal breath sounds bilaterally and clear to auscultation. No wheezes rales or rhonchi. CARDIOVASCULAR: S1-S2, regular rate, regular rhythm. Radial pulses 2+, normal. ABDOMEN: Normoactive bowel sounds. Soft, tender left lower quadrant, slight guarding, no rebound tenderness, and no masses palpated. EXTREMITIES: Normal strength and range of motion, no pitting or edema. No cyanosis. NEUROLOGICAL: Moves all extremities upon command. Strength 5/5 in all extremities. PSYCH: Normal mood, normal affect. SKIN: Warm, dry. Healing spider bite to right buttock. Course - Re-evaluation Re-evalutation: 04/25/20 12:04 Ultrasound was unremarkable. Hematology is unremarkable. Chemistries are also unremarkable. Urinalysis is negative. hCG is alsoNegative. There is a possibility that patient's symptoms of the nausea can be due to the spider bite. We will put her on Bactrim. Have a low suspicion for appendicitis, or any life-threatening etiology at this time. Follow-up precautions were given. Verbal discharge instructions were given to the patient. They verbalized understanding. They are stable for discharge. - Vital Signs Vital signs: Temp Pulse Resp BP Pulse Ox 98.7 F 86 16 122/98 H 100 04/25/20 09:45 04/25/20 09:45 04/25/20 09:45 04/25/20 09:45 04/25/20 09:45 - Laboratory Result Diagrams: 04/25/20 10:30 04/25/20 10:30 Laboratory results interpreted by me: 04/25/20 10:30 Hct 35.9 L Discharge - Discharge Clinical Impression: Spider bite Qualifiers: Encounter type: initial encounter Injury intent: accidental or unintentional Qualified Code(s): T63.301A - Toxic effect of unspecified spider venom, accidental (unintentional), initial encounter Nausea and vomiting Qualifiers: Vomiting type: unspecified Vomiting Intractability: unspecified Qualified Code(s): R11.2 - Nausea with vomiting, unspecified Condition: Stable Disposition: HOME, SELF-CARE Instructions: Antinausea Medication ([facility]), Trimethoprim-Sulfa ([facility]), Vomiting ([facility]) Additional Instructions: You were seen today in the emergency department for a spider bite, nausea, and vomiting. Please take your antibiotics as prescribed. You can take the nausea as needed for nausea vomiting. This may help you also feel better. Follow-up with your primary care provider in regards to this visit. Prescriptions: Sulfamethoxazole/Trimethoprim [Bactrim Ds Tablet] 1 each PO BID 7 Days #14 tablet Lidocaine [Lidocaine Pain Relief] 113 gm TP QID PRN #1 spray PRN Reason: Ondansetron [Zofran Odt 4 mg Tablet] 1 - 2 tab PO Q4H PRN #30 tab.rapdis PRN Reason: For Nausea/Vomiting
[2020-04-25 10:45] LABS: ABSOLUTE EOSINOPHILS # (AUTO) 0.2 10^3/uL (0.0-0.6); ABSOLUTE LYMPHOCYTES (AUTO) 2.1 10^3/uL (0.5-4.7); ABSOLUTE MONOCYTES (AUTO) 0.7 10^3/uL (0.1-1.4); ABSOLUTE NEUT (AUTO) 5.6 10^3/uL (1.7-8.2); BASOPHILS % (AUTO) 0.4 % (0-2); EOSINOPHILS % (AUTO) 2.2 % (0-6); HEMATOCRIT 35.9 % (36.0-47.0); HEMOGLOBIN 12.1 g/dL (12.0-15.5); LYMPHOCYTES % (AUTO) 24.5 % (13-45); MEAN CORPUSCULAR HEMOGLOBIN 28.6 pg (27.0-33.4); MEAN CORPUSCULAR HGB CONC 33.8 g/dL (32.0-36.0); MEAN CORPUSCULAR VOLUME 85 fl (80-97); MONOCYTES % (AUTO) 7.8 % (3-13); PLATELET COUNT 347 10^3/uL (150-450); RED BLOOD COUNT 4.25 10^6/uL (3.72-5.28); RED CELL DISTRIBUTION WIDTH 13.2 % (11.5-14.0); SEGMENTED NEUTROPHILS % (AUTO) 65.1 % (42-78); TOTAL CELLS COUNTED % (AUTO) 100 %; WHITE BLOOD COUNT 8.7 10^3/uL (4.0-10.5)
[2020-04-25 10:49] LABS: APPEARANCE,URINE CLEAR; BILIRUBIN,URINE NEGATIVE (NEGATIVE); COLOR,URINE YELLOW; GLUCOSE, URINE NEGATIVE (NEGATIVE); KETONES,URINE NEGATIVE (NEGATIVE); PROTEIN,URINE NEGATIVE (NEGATIVE); URINE SPECIFIC GRAVITY 1.021; UROBILINOGEN,URINE NEGATIVE mg/dL (<2.0)
[2020-04-25 11:03] LABS: ALBUMIN 3.9 g/dL (3.5-5.0); ALKALINE PHOSPHATASE 58 U/L (38-126); ANION GAP 6 (5-19); ASPARTATE AMINO TRANSFERASE 17 U/L (14-36); BILIRUBIN,DIRECT 0.2 mg/dL (0.0-0.4); BILIRUBIN,TOTAL 0.3 mg/dL (0.2-1.3); BLOOD UREA NITROGEN 14 mg/dL (7-20); CALCIUM 9.2 mg/dL (8.4-10.2); CARBON DIOXIDE 29 mmol/L (22-30); CHLORIDE 102 mmol/L (98-107); GLUCOSE 83 mg/dL (75-110); POTASSIUM 4.2 mmol/L (3.6-5.0); TOTAL PROTEIN 6.8 g/dL (6.3-8.2)
--- NOTE | 2020-04-25 11:30 | RADIOLOGY REPORT (SQ) ---
EXAM DESCRIPTION: U/S NON OB PEL TV W/DOPPLER IMAGES COMPLETED DATE/TIME: 04/25/2020 11:03 am REASON FOR STUDY: pelvic pain COMPARISON: None. TECHNIQUE: Dynamic and static grayscale images acquired of the pelvis via transabdominal approach an d recorded on PACS. Additional selected color Doppler and spectral images recorded. LIMITATIONS: None. FINDINGS: UTERUS: Contour normal. No mass. Uterus is 10 x 7 x 6 cm in size ENDOMETRIAL STRIPE: No focal or generalized thickening. No masses. Endometrial stripe 13 mm in thick ness CERVIX: No nabothian cysts. Closed, 3 cm in length. RIGHT OVARY AND DOPPLER: Normal size, 3.5 x 3.4 x 2.5 cm in size. No worrisome masses. Normal arteria l vascular flow without evidence for torsion. LEFT OVARY AND DOPPLER: Normal size, 3.6 x 2.6 x 2.4 cm in size. No worrisome masses. Normal arterial vascular flow without evidence for torsion. FREE FLUID: None noted. OTHER: No other significant finding. IMPRESSION: Unremarkable study TECHNICAL DOCUMENTATION: JOB ID: [id number] 2010 [employer]- All Rights Reserved Rev-01/12 Reading location - IP/workstation name: [email or web address]
[2020-04-25] MEDS ORDERED: SULFAMETHOXAZOLE/TRIMETHOPRIM 800-160 MG TABLET PO ONE (12:03)
[2020-04-25 12:48] VITALS: BP 128/89
== END 2020-04-25 12:46 | disposition home or self-care (01) ==
LOC: ER 08:57
DX: T63.301A Toxic effect of unspecified spider venom, accidental (unintentional), initial encounter (principal); Y93.89 Activity, other specified; R11.2 Nausea with vomiting, unspecified; R68.83 Chills (without fever); R10.814 Left lower quadrant abdominal tenderness; Z88.8 Allergy status to other drugs, medicaments and biological substances
CPT/HCPCS: 99284; 36415; 85025; 81025; 80053; 81001; 76830; 93976; J3490